=== PATIENT | female | born 1980 ===

== ENCOUNTER → 2020-07-10 | Day surgery (SDC) | payer BC, OTHER | END | disposition home or self-care (01) | LOC: JASU-ENDO 05:33 | PROVIDERS: ATTEND Internal Medicine Gastroenterology | PROC: 0DJD8ZZ Inspection of Lower Intestinal Tract, Via Natural or Artificial Opening Endoscopic (ICD-10-PCS; principal; 2020-07-10) | DX: R10.30 Lower abdominal pain, unspecified (principal); Z53.8 Procedure and treatment not carried out for other reasons ==